=== PATIENT | female | born 1960 | race African-American/Black ===

== ENCOUNTER 2025-03-14 16:18 | Outpatient (CLI) | payer OTHER, SELFPAY ==
--- NOTE | ~2025-03-14 | CT_ITS ---
EXAMINATION: CT knee RT wo con DATE: 03/14/2025 17:25 INDICATION: Nondisplaced fracture lateral condyle of the right tibia TECHNIQUE: Computed tomography (CT) of the right knee was performed without intravenous contrast. The dose-length product was 468.38 mGy-cm. COMPARISON: None FINDINGS: There is severe tricompartment osteoarthritis of the right knee. There are osteochondral defects and small cystic changes in the medial aspect of the femoral condyle and tibial plateau, consistent with secondary degenerative change. No acute fracture, subluxation or dislocation is identified. No significant joint effusion. IMPRESSION: 1. No acute fracture. If there is continuing concern for subtle nondisplaced fracture or bone bruising, correlation with MRI recommended. 2: Severe tricompartment osteoarthritis of the right knee. Reviewed, dictated and finalized at location O. IMPRESSION: 1. No acute fracture. If there is continuing concern for subtle nondisplaced fr acture or bone bruising, correlation with MRI recommended. 2: Severe tricompartment osteoarthritis of the right knee.
--- OUTSIDE RECORDS SUMMARY | 2025-03-14 17:17 | XMS_ITS | Encounter Summary ---
Author Organization [facility] Facility Care Team Providers Care Tapper Supervisor Name Role Phone Delmer Farnsworth MD Primary Care Provider [phone] Abdoulaye Burns Primary Care Provider [phone] Encounter Details Date Type Department Care Team (Latest Contact Info) Description 02/15/2018 Orders Only [facility] CLINCON[facility] ProviderWinston MD [address] [place] [id number] Social History Tobacco Use Types Packs/Day Years Used Date Smoking Tobacco: Never Assessed Comments Unknown Sex and Gender Information Value Date Recorded Sex Assigned at Not on file 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 Historical Provider Final Res ult documented in this encounter Visit Diagnoses Not on filedocumented in this encounter Care Teams Tapper Supervisor Relationship Specialty Start Date End Date Delmer Farnsworth MD PCP - General Family Medicine 05/11/19 04/02/22 Abdoulaye Burns PA PCP - General Family Medicine 04/03/22 documented as of this encounter
--- OUTSIDE RECORDS SUMMARY | 2025-03-14 17:17 | XMS_ITS | Encounter Summary ---
Author Organization [facility] Healthcare Address [address] [place] [address] Care Team Providers Care Heater Operator Helper Name Role Phone Abdoulaye Burns Primary Care Provider [phone] Encounter Details Date Type Department Care Team ([facility] Contact Info) Description 01/31/2025 Results Follow-Up [facility] Medical Group Family Medicine at [address] [place] [address] Abdoulaye Burns PA [address] [place] [id number] Diagnostic Mammogram Left W [place] Social History Tobacco Use Types Packs/Day Years Used Date Smoking Tobacco: Former Cigarettes Q uit: 11/24/2002 Smokeless Tobacco: Never Comments:was a social smoker Alcohol Use Standard Drinks/Week Comments Yes 0 (1 standard drink = 0.6 oz pur e alcohol) occasionally AUDIT-C Answer Date Recorded Q1: How often do you have a drink containing alc ohol? 2-3 times a week 01/03/2025 Q2: How many drinks containi ng alcohol do you have on a typical day when you are drinking? 1 or 2 01/03/2025 Q3: How often do you have si x or more drinks on one occasion? Never 01/03/2025 PHQ-2 Answer Date Recorded PHQ-2 Total Score (If total score is 3 or more points, staff should administer the PHQ-9) 0 01/17/2025 Personal Safety Answer Date Recorded Have you ever been in or are you currently in a harmful physical or emotional relationship or is someone making you feel afraid or unsafe? 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
--- OUTSIDE RECORDS SUMMARY | 2025-03-14 17:17 | XMS_ITS | Encounter Summary ---
Author Organization [facility] Facility Care Team Providers Care Enterprise Resource Planning Consultant Name Role Phone Delmer Farnsworth MD Primary Care Provider [phone] Abdoulaye Burns Primary Care Provider [phone] Encounter Details Date Type Department Care Team (Latest Contact Info) Description 08/05/2018 Orders Only [facility] CLINCONV ProviderWinston MD [address] [place] [address] Social History Tobacco Use Types Packs/Day Years Used Date Smoking Tobacco: Never Assessed Comments Unknown Sex and Gender Information Value Date Recorded Sex Assigned at Not on file 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 Historical Provider Final Res ult documented in this encounter Visit Diagnoses Not on filedocumented in this encounter Care Teams Enterprise Resource Planning Consultant Relationship Specialty Start Date End Date Delmer Farnsworth MD PCP - General Family Medicine 05/11/19 04/02/22 Abdoulaye Burns PA PCP - General Family Medicine 04/03/22 documented as of this encounter
--- OUTSIDE RECORDS SUMMARY | 2025-03-14 17:18 | XMS_ITS | Clinical Summary ---
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 Gender Identity Not on file Sexual Orientation Not on file Plan of Treatment Health Maintenance Due Date Last Done Comments Hepatitis C Virus (HCV) Screening 1961 Pap Smear 1982 Cervical Cancer Screening (CCS) 12/08/1991 HPV/Cotest 12/08/1991 Cologuard 2006 Colonoscopy 2006 Colorectal Cancer Screening 2006 Immunochemical Fecal Occult Blood 2006 Zoster Immunization (1 of 2) 12/08/2011 Pneumococcal Immunization (50+ years) (2 of 2 - PCV) 04/18/2014 04/18/2013 SARS-COV-2 Immunization ( season) 2024 07/14/2021, 09/13/2020 Influenza Immunization (#1) 03/06/202504/05, 04/14/2017, 03/18/2016, Additional history exists Respiratory Syncytial Virus (RSV) Immunization (Adult) (1 - 1-dose 75+ series) 2036 DTaP/Tdap/Td Immunization Discontinued 04/18/2013 Pneumococcal Immunization Combined Discontinued 04/18/2013 TdaP Immunization Completed 04/18/2013 Hepatitis B Immunization Aged Out No longer eligible based on patient's age to complete this topic Human Papillomavirus (HPV) Immunization Aged Out No longer eligible based on patient's age to complete this topic Meningococcal Immunization (ACWY) Aged Out No longer eligible based on patient's age to complete this topic Rotavirus Immunization Aged Out No lo nger eligible based on patient's age to complete this topic
--- OUTSIDE RECORDS SUMMARY | 2025-03-14 17:18 | XMS_ITS | Encounter Summary ---
Author Organization [facility] Health Address [address] [place] [address] Care Team Providers Care Press Puller Name Role Phone Stanislav Andino DO Primary Care Provider [phone] Hillary Grant RN Unavailable Segundo Lombardi MD Unavailable Encounter Details Date Type Department Care Team (Late st Contact Info) Description 09/07/2015 [facility] Outpatient Visit [facility] [address] [place] [address] Abdifatah Fishman MD [address] [facility] [address] [place] [address] Social History Tobacco Use Types Packs/Day Years Used Date Smoking Tobacco: Former Smokeless Tobacco: Never Comments:quit 10 years ago Alcohol Use Standard Drinks/Week Comments Yes 0 (1 standard drink = 0.6 oz pur e alcohol) occ Comments No Sex and Gender Information Value Date Recorded Sex Assigned at Not on file Legal Sex Female 5:59 AM TROUBLE DISPATCHER Gender Identity Not on file Sexual Orientation Not on file documented as of this encounter Plan of Treatment Not on file documented as of this encounter Visit Diagnoses Not on filedocumented in this encounter Care Teams Press Puller Relationship Specialty Start Date End Date Stanislav Andino DO PCP - General Internal Medicine 09/07/15 Hillary Grant, MARCELINA Import Coordinator 12/07/15 Segundo Lombardi MD [address] [place] [address] Gastroenterology 12/19/15 documented as of this encounter
--- OUTSIDE RECORDS SUMMARY | 2025-03-14 17:18 | XMS_ITS | Clinical Summary ---
Author Organization [facility] Address [address] [place] [id number] Care Team Providers Care Rn Baby Name Role Phone Marely Samayoa Primary Care Provider Allergies No known active allergies Medications folic acid/multivit-m in/lutein (CENTRUM SILVER ORAL) Take 1 tablet by mouth 2 (two) times a day Active UNABLE TO FIND Take 1 each by mouth daily Med Name: Biotin 2500 mcg Active celecoxib (CeleBREX) 200 mg capsuleIndicati ons:Chronic pain of right knee Take 1 capsule (200 mg total) by mouth daily 90 capsule [address] (ACIPHEX) 20 mg EC tabletIndicatio ns:Acute gastric ulcer with bleeding Take 1 tablet (20 mg total) by mouth daily 90 tablet 3 4 Active losartan (COZAAR) 50 mg tabletIndicatio ns:Benign essential HTN Take 1 tablet (50 mg total) by mouth daily 90 tablet 3 4 Active furosemide (LASIX) 40 mg tabletIndicatio ns:Bilateral lower extremity edema Take 1 tablet (40 mg total) by mouth daily 90 tablet 3 5 Active acetaminophen (TYLENOL) 325 mg tabletIndicatio ns:Left foot pain Take 2 tablets (650 mg total) by mouth every 6 (six) hours as needed for pain 30 tablet 2 5 Active potassium chloride ER (KLOR-CON) 10 mEq CR tablet Take 1 tablet/capsule (10 mEq total) by mouth daily 90 tablet 3 5 11/03/19 26 Active diclofenac sodium (VOLTAREN) 1 % gelIndications: Achilles tendinitis of right lower extremity Apply 2 g topically 4 (four) times a day 100 g 1 5 Active ferrous sulfate (FeroSuL) 325 mg (65 mg of elemental iron) tabletIndicatio ns:Iron deficiency anemia due to chronic blood loss Take 1 tablet (325 mg total) by mouth daily with breakfast 90 tablet 3 5 Active nebivoloL (BYSTOLIC) 10 mg tabletIndicatio ns:Benign essential HTN,Bilateral lower extremity edema Take 1 tablet (10 mg total) by mouth daily 90 tablet 3 5 01/18/20 26 Active cholecalciferol (VITAMIN D-3) 5,000 unit capsuleIndicati ons:Vitamin D deficiency TAKE 1 TABLET BY MOUTH DAILY 90 capsule 1 5 Active Active Problems Problem Noted Date Diagnosed Date Pulmonary HTN 01/17/2025 Benign essential HTN 01/14/2024 Assessment & Plan (04/13/2024 4:49 PM CDT): Chronic uncontrolled Continue bystolic Start losartan 50mg Assessment & Plan (01/14/2024 11:31 AM CDT): Chronic and not well controlled with edema likely secondary to norvasc D/c norvasc Start bystolic 10mg Abnormal EKG 12/14/2023 Assessment & Plan (02/08/2025 3:27 PM CDT): -Preoperative risk assessment completed during last visit last year showing T- wave abnormality which is unchanged today Preoperative cardiovascular examination 12/14/19 24 Exertional dyspnea 12/14/2023 Pre-op evaluation 12/14/2023 Mixed hyperlipidemia 12/14/2023 Assessment & Plan (02/08/2025 3:13 PM CDT): -LDL 120 last month with goal < 100 -advised on low-fat, low-cholesterol diet -ASCVD risk 7%-discussed risk reduction Primary osteoarthritis of right knee 12/09/2023 Assessment & Plan (04/13/2024 4:51 PM CDT): Chronic severe degeneration Continue celebrex Give initial injection today RISKS AND BENEFITS OF PROCEDURE WERE EXPLAINED TO PATIENT AND CONSENT FORM WAS SIGNED. AREA WAS PREPPED WITH BETADINE TO SKIN AND DRAPED IN A STERILE MANOR. 1 1/2CC kenolog AND 1 1/2 CC LIDOCAINE WAS INJECTED INTO right knee JOINT WITH LATERAL APPROACH. PATIENT TOLERATED PROCEDURE WELL WITHOUT COMPLICATION. APPROPRIATE BANDAGE APPLIED. PATIENT ADVISED TO CALL WITH ANY CONCERNS/COMPLICATIONS. Assessment & Plan (12/09/2023 2:15 PM CDT): Chronic severe degeneration Continue celebrex Give initial injection today RISKS AND BENEFITS OF PROCEDURE WERE EXPLAINED TO PATIENT AND CONSENT FORM WAS SIGNED. AREA WAS PREPPED WITH BETADINE TO SKIN AND DRAPED IN A STERILE MANOR. 1 1/2CC kenolog AND 1 1/2 CC LIDOCAINE WAS INJECTED INTO right knee JOINT WITH LATERAL APPROACH. PATIENT TOLERATED PROCEDURE WELL WITHOUT COMPLICATION. APPROPRIATE BANDAGE APPLIED. PATIENT ADVISED TO CALL WITH ANY CONCERNS/COMPLICATIONS. Bilateral lower extremity edema 12/09/2023 Assessment & Plan (02/14/2025 10:07 PM CDT): -Patient continues on furosemide 40 mg daily - currently having tendenitis with bone spur in right foot and currently in a boot followed by Ortho -TTE 01/25/2025 showing EF 57%, grade 1 DD, mild MR, mild TR with PASP 35-45 mmHg consistent with mild pulmonary hypertension - euvolemic on exam Assessment & Plan (04/13/2024 4:47 PM CDT): Chronic uncontrolled Start lasix 40mg every day Start kcl 10meq every day Assessment & Plan (01/14/2024 11:33 AM CDT): Chronic and currently not well controlled Double lasix for 4 days Start kcl 10meq qd#90 Order chem 7 cbc in 2 weeks Assessment & Plan (12/09/2023 2:17 PM CDT): Chronic Reduce processed and na foods Complression socks Restart lasix Class 3 severe obesity due t o excess calories without serious comorbidity with body mass index (BMI) of 45.0 to 49.9 in adult 10/13/2023 Assessment & Plan (02/08/2025 3:27 PM CDT): -BMI 48 -Advised on diet lifestyle modifications to promote weight loss -would consider GLP 1 options with PCP Assessment & Plan (10/13/2023 3:06 PM CDT): Chronic uncontrolled, reduce processed carb/starch, exercise as max, whole foods Abnormal finding on GI tract imaging 01/19/2023 Assessment & Plan (01/19/2023 2:04 PM CDT): CT scan 06/2022 showed gallstone in the gallbladder neck, mild biliary fullness. -we will order MRI/MRCP for further evaluation Acute gastric ulcer with bleeding 06/17/2022 Assessment & Plan (01/19/2023 2:04 PM CDT): Patient has a history of diverticulitis status post resection and was admitted to the hospital June 2022 for GI bleeding. Patient underwent EGD and colonoscopy by Dr. Darby June 2022. EGD notable for a large hiatal hernia, 8 mm ulcer with a clean base in the gastric antrum, gastritis. Colonoscopy with inadequate prep, evidence of prior surgery in the sigmoid colon, diverticulosis in the descending colon, otherwise unremarkable colonoscopy. Stopped NSAIDs after EGD. Denies melena or rectal bleeding since hospitalization. -avoid NSAIDs -continue PPI b.i.d. -schedule EGD to assess for ulcer healing -RECOMMENDATIONS given include: anti-reflux maneuvers, Avoid acidic foods like oranges and tomatoes., avoidance of spicy foods, avoid eating 3-4 hours before bed, elevation of the head of the bed, and weight loss Assessment & Plan (06/17/2022 10:02 AM PROVIDER SCRIBE): Increase Protonix to 40 mg b.i.d. as indicated by discharge from hospitalization. Will complete this for 90 days and reduced to once a day. Gastroesophageal reflux disease without esophagi tis 06/17/2022 Assessment & Plan (11/27/2023 8:51 AM CDT): Chronic stable improved Continue pantoprazole Assessment & Plan (06/17/2022 10:01 AM PROVIDER SCRIBE): Chronic condition refer to GI for follow-up management of recently developed bleeding ulcer. This was verified by EGD. Continue with Protonix 40 mg b.i.d. for 90 days. GI bleed 06/06/2022 Vitamin D deficiency 12/03/2021 Assessment & Plan (12/03/2021 12:45 PM CDT): Chronic Order vit d level Venous insufficiency of both lower extremities 1 07/17/2018 Assessment & Plan (11/27/2023 8:51 AM CDT): Chronic stable Continue furosemide for edema continue compression stocking. Non-seasonal allergic rhinitis 05/17/2019 Iron deficiency anemia 05/17/2019 Assessment & Plan (01/19/2023 2:04 PM CDT): See above. -if patient remains anemic despite ulcer healing, we will consider capsule endoscopy for further evaluation Assessment & Plan (06/17/2022 10:01 AM PROVIDER SCRIBE): Chronic condition currently taking iron supplement. Order CBC Assessment & Plan (12/03/2021 12:44 PM CDT): Chronic Order iron panel and cbc Rectal bleeding Encounters Date Type Department Care Team Description 02/08/2025 2:30 PM CDT Office Visit [facility] Cardiology [address] [place] [address] [place] [phone] Suyapa Monterroso NP Exertional dyspnea (Primary Dx); Primary hypertension; Abnormal EKG; Bilateral lower extremity edema; Mild pulmonary hypertension (HCC); Mixed hyperlipidemia; Class 3 severe obesity due to excess calories without serious comorbidity with body mass index (BMI) of 45.0 to 49.9 in adult 02/02/2025 9:53 AM CDT - 02/02/2025 11:59 PM CDT Hospital Encounter [facility] Di[facility] Imaging [address] [place] [phone] Right foot pain; Left foot pain; Pulmonary HTN (HCC); Bilateral leg edema Discharge Disposition: Discharge to home or self care 02/02/2025 9:30 AM CDT Office Visit [facility] Orthopedics and Sports Medicine [address] [place] [address] [address] [place] [address] Saji Abraham DO Right foot pain (Primary Dx); Left foot pain; Tendinopathy; Abnormal x-ray 01/31/2025 8:30 AM CDT - 01/31/2025 11:59 PM CDT Hospital Encounter [facility] Bl [address] [place] [address] Abnormal mammogram Discharge Disposition: Discharge to home or self care 01/31/2025 Results Follow-Up [facility] at [address] [place] [address] Marely Samayoa PA Diagnostic Mammogram Left W [place]onzo 01/31/2025 Telephone [facility] at [address] [place] [address] Marely Samayoa PA Test Results 01/25/2025 10:18 AM CDT - 01/25/2025 11:59 PM CDT Hospital Encounter [facility] Breast Imaging [address] [place] [phone] Screening mammogram, encounter for Discharge Disposition: Discharge to home or self care 01/25/2025 9:00 AM CDT - 01/25/2025 11:59 PM CDT Hospital Encounter [facility] Cardiac Testing [address] [place] [address] Bilateral leg edema Discharge Disposition: Discharge to home or self care 01/17/2025 11:00 AM CDT Office Visit [facility] at [address] [phone] Marely Samayoa PA Pulmonary HTN (HCC) (Primary Dx); Benign essential HTN; Bilateral lower extremity edema; Daytime somnolence; Iron deficiency anemia due to chronic blood loss; Primary osteoarthritis of right knee 01/03/2025 9:20 AM CDT - 01/03/2025 11:59 PM CDT Hospital Encounter [facility] Diag Imaging [address] [place] [address] Achilles tendinitis of right lower extremity; Pain of left heel Discharge Disposition: Discharge to home or self care 01/03/2025 9:05 AM CDT Lab [facility] Medical Office Bldg [address] [place] [id number] Benign essential HTN; Bilateral leg edema; Iron deficiency anemia due to chronic blood loss; Annual physical exam 01/03/2025 8:00 AM CDT Office Visit [facility] at [address] [address] Marely Samayoa PA Bilateral leg edema (Primary Dx); Morbid obesity with BMI of 45.0-49.9, adult (HCC); Benign essential HTN; Achilles tendinitis of right lower extremity 01/03/2025 Results Follow-Up [facility] at [address] [phone] Marely Samayoa PA T3, free, Pro B-type natriuretic peptide, TSH, Additional followed-up results: 11 01/03/2025 Orders Only [facility] at [address] [phone] Marely Samayoa PA Pain of left heel (Primary Dx) 01/02/2025 Nurse Triage [facility] at [address] [address] Marely Samayoa PA 12/12/2024 Telephone [facility] at [address] [address] Marely Samayoa PA Symptom Based Call from Last 3 Months Immunizations Immunization Administration Dates Next Due Influenza, Quadrivalent, Spl it, Intramuscular 04/15/2018 Influenza, Quadrivalent, Spl it, Preservative Free, Intramuscular 06/07/2022,04/15/2018,04/14/2018 Influenza, Trivalent, IM (MDV) 05/10/2021 Influenza, Trivalent, Preser vative Free, Intramuscular 04/13/2024,04/14/2017,03/18/2016,04/11 Influenza, Unspecified 03/06/2023(Deferr ed: Patient Refused),05/03/2021,03/06/2020(Deferre d: Patient Refused) Pneumococcal Polysaccharide PPV23 04/18/2013 Tdap 04/18/2013 Surgical History Surgery Date Site/Laterality Comments HERNIA REPAIR NASAL SINUS SURGERY HYSTERECTOMY CARPAL TUNNEL RELEASE COLON SURGERY BREAST EXCISIONAL BIOPSY 07/06/1978 - 07/05/1979 Bilateral Bilateral benign excisional biopsies age 18 Medical History Medical History Date Comments GERD (gastroesophageal reflux disease) Diverticulosis Colon polyp Family History Medical History Relation Name Comments Diabetes Brother 1 No Known Problems Brother 2 Deep vein thrombosis Daughter No Known Problems Father Hypertension Mother Cancer Sister 1 Colon cancer Sister 1 No Known Problems Sister 2 No Known Problems Sister 3 Breast cancer Neg Hx Relation Name Status Comments Brother 1 Alive Brother 2 Alive Daughter Alive Father Mother Sister 1 Alive Sister 2 Alive Sister 3 Alive Social History Tobacco Use Types Packs/Day Years Used Date Smoking Tobacco: Former Cigarettes Q uit: 11/24/2002 Smokeless Tobacco: Never Tobacco Cessation:Counseling Given: Not Answered Comments:was a social smoker Alcohol Use Standard [...] on file Legal Sex Female 12:13 PM PROVIDER SCRIBE Gender Identity Not on file Sexual Orientation Not on file Obstetrics History Para Term AB IAB SAB Ectopic Multiple Livin g Live Births 1 1 Date Outcome GA Total Labor Labor/2nd/3rd Weight Sex Type Anes PTL Juliet A1 A5 Name Clin Last Filed Vital Signs Vital Sign Reading Time Taken Comments Blood Pressure 130/70 02/08/2025 2:43 PM CDT Pulse 87 02/08/2025 2:43 PM CDT Temperature 37.2 C (99 F) 01/17/2025 11:39 AM CDT Respiratory Rate 16 01/17/2025 11:3 9 AM CDT Oxygen Saturation 96% 02/08/2025 2:43 PM CDT Inhaled Oxygen Concentration - - Weight 131.8 kg (290 lb 9.6 oz) 02/08/2025 2:43 PM CDT Height 165.1 cm (5' 5) 02/08/2025 2:43 PM CDT Body Mass Index 48.36 02/08/2025 2:43 PM CDT Plan of Treatment Health Maintenance Due Date Last Done Comments Hepatitis C Screening 1960 Hepatitis B Screening 12/08/1979 Zoster Vaccine (1 of 2) 12/08/2011 DTaP/Tdap/Td Vaccine (2 - Td or Tdap) 04/18/2023 04/18/2013 Influenza Vaccine (#1) 2025 , 06/07/2022, 05/10/2021, Additional history exists Regular Well Visit/Exam 18-64 11/02/2025 11/02/2024, 10/13/2023, 09/03/2020 Depression Screening 01/17/2026 01/17/2025, 11/02/2024, 12/16/2022, Additional history exists Breast Cancer Screening-Mammogram 01/25/2026 01/25/2025 Colon Cancer Screening-Colonoscopy 06/03/2027 06/03/2022 Pneumococcal vaccine <65 Aged Out 04/18/2013 No longer eligible based on patient's age to complete this topic Cervical Cancer Screening Discontinued 11/19/2015 Colon Cancer Screening-CT Colonography Discontinued 06/03/2022 Colon Cancer Screening-DNA Stool Discontinued 06/03/2022 Colon Cancer Screening-FIT Discontinued 06/03/2022 Colon Cancer Screening-Sigmoidoscopy Discontinued 06/03/2022 Covid-19 Vaccine Completed 03/29/2024, , 10/28/2022, Additional history exists Procedures Procedure Name Priority Date/Time Associated Diagnosis Comments HI ECG ROUTINE ECG W/LEAST 12 LDS W/I&R Routine 02/14/2025 10:04 PM CDT Abnormal EKG ECG 12-LEAD Routine 02/08/2025 2:52 PM CDT Abnormal EKG XR ANKLE LEFT 3 OR MORE VIEWS Schedule Routine, Read Routine (OP Routine) 02/02/2025 10:23 AM CDT Left foot pain XR FOOT LEFT 3 OR MORE VIEWS Schedule Routine, Read Routine (OP Routine) 02/02/2025 10:23 AM CDT Left foot pain XR FOOT RIGHT 3 OR MORE VIEWS Schedule Routine, Read Routine (OP Routine) 02/02/2025 10:23 AM CDT Right foot pain XR ANKLE RIGHT 3 OR MORE VIEWS Schedule Routine, Read Routine (OP Routine) 02/02/2025 10:23 AM CDT Right foot pain DIAGNOSTIC MAMMOGRAM LEFT W ALONZO Schedule Routine, Read Routine (OP Routine) 01/31/2025 9:22 AM CDT Abnormal mammogram SCREENING MAMMOGRAM BILATERAL W ALONZO Schedule Routine, Read Routine (OP Routine) 01/25/2025 10:32 AM CDT Screening mammogram, encounter for TRANSTHORACIC ECHO (TTE) COMPLETE W DOPPLER/CF WO CONTRAST Routine 01/25/2025 10:07 AM CDT Bilateral leg edema XR CALCANEUS LEFT 2 OR MORE VIEWS Schedule Routine, Read Routine (OP Routine) 01/03/2025 9:29 AM CDT Pain of left heel XR CALCANEUS RIGHT 2 OR MORE VIEWS Schedule Routine, Read Routine (OP Routine) 01/03/2025 9:29 AM CDT Achilles tendinitis of right lower extremity EGFR Routine 01/03/2025 9:15 AM CDT Bilateral leg edema DIFFERENTIAL AUTO Routine 01/03/2025 9:1 5 AM CDT Bilateral leg edema LIPID PANEL Routine 01/03/2025 9:15 AM CDT Benign essential HTN Annual physical exam FERRITIN Routine 01/03/2025 9:15 AM CDT Iron deficiency anemia due to chronic blood loss IRON PROFILE W/ IBC Routine 01/03/2025 9 :15 AM CDT Iron deficiency anemia due to chronic blood loss T4, FREE Routine 01/03/2025 9:15 AM CDT Benign essential HTN CBC WITH AUTO DIFFERENTIAL Routine 01/03/2025 9:15 AM CDT Bilateral leg edema COMPREHENSIVE METABOLIC PANEL Routine 01/03/2025 9:15 AM CDT Bilateral leg edema TSH Routine 01/03/2025 9:15 AM CDT Bilateral leg edema PRO B-TYPE NATRIURETIC PEPTIDE Routine 01/03/2025 9:15 AM CDT Bilateral leg edema T3, FREE Routine 01/03/2025 9:15 AM CDT Benign essential HTN COLONOSCOPY Routine 06/03/2022 HM PAP SMEAR WITH HPV Routine 11/19/2015 from Last 3 Months or Most Recently Relevant to Health Maintenance Results * HI ECG ROUTINE ECG W/LEAST 12 LDS W/I&R (02/14/2025 10:04 PM CDT) Narrative Suyapa Monterroso NP - 02/14/2025 10:04 PM CDT Suyapa Monterroso NP 02/14/2025 10:07 PM EKG 12 lead office performed Date/Time: 02/14/2025 10:04 PM Performed by: Suyapa Monterroso NP Authorized by: Suyapa Monterroso NP Procedure Type: Global Compared with previous ECG: Yes Similar to previous ECG Rhythm: sinus rhythm Rate: normal BPM: 83 QRS axis: Normal Conduction: Normal ST Segment: Normal T Wave: Normal Clinical impression: normal ECG Suyapa Monterroso NP ECG ORDERABLES Final Result * ECG 12 lead (02/08/2025 2:52 PM CDT) Suyapa Monterroso NP ECG ORDERABLES Final Result * XR Foot Right 3 or More Views (02/02/2025 10:23 AM CDT) Anatomical Region Laterality Modality Lower Extremities, Foot Right Computed Radiography 02/04/2025 1:52 PM CDT Narrative 02/04/2025 2:03 PM CDT SERVICE TYPE: : PatientClass ORD #: : AccessionNumber EXAM DESCRIPTION: 1. XR ANKLE RIGHT 3 OR MORE VIEWS; 2. XR ANKLE LEFT 3 OR MORE VIEWS; 3. XR FOOT LEFT 3 OR MORE VIEWS; 4. XR FOOT RIGHT 3 OR MORE VIEWS REASON FOR STUDY: pain Bilateral foot and ankle swelling x 1 MTH, NKI FINDINGS: Three views each ankle and three views each foot submitted with comparison 01/03/2025. Right ankle/foot: No acute fracture. Mild anterior ankle osteoarthritis. Insertional Achilles tendinosis is present. Large heel spur. Moderate pes planovalgus with polyarticular midfoot osteoarthritis. Moderate forefoot soft tissue swelling. Lesser hammertoe deformities are present. Left ankle: No acute fracture. Old deltoid ligament sprain noted. Mild anterior left ankle osteoarthritis. Achilles tendinosis is present. Large heel spur. Moderate pes planovalgus with polyarticular midfoot osteoarthritis. Lesser hammertoe deformities. Forefoot soft tissue swelling. IMPRESSION: 1. Moderate bilateral pes planovalgus with polyarticular midfoot osteoarthritis. 2. Mild bilateral anterior ankle osteoarthritis. 3. Bilateral insertional Achilles tendinosis with large heel spurs. 4. Bilateral forefoot soft tissue swelling. THIS IS AN ELECTRONICALLY VERIFIED FINAL REPORT 02/04/2025 2:03 PM - Electronically signed by Chetan Brandon M.D. T: Report ID: [id number] Reading Location: [place] [address] Procedure Note Chetan Brandon MD - 02/04/2025 SERVICE TYPE: : PatientClass ORD #: : AccessionNumber EXAM DESCRIPTION: 1. XR ANKLE RIGHT 3 OR MORE VIEWS; 2. XR ANKLE LEFT 3 OR MORE VIEWS; 3. XR FOOT LEFT 3 OR MORE VIEWS; 4. XR FOOT RIGHT 3 OR MORE VIEWS REASON FOR STUDY: pain Bilateral foot and ankle swelling x 1 MTH, NKI FINDINGS: Three views each ankle and three views each foot submitted with comparison 01/03/2025. Right ankle/foot: No acute fracture. Mild anterior ankle osteoarthritis. InsertionalAchilles tendinosis is present. Large heel spur. Moderate pes planovalgus with polyarticular midfoot osteoarthritis. Moderate forefoot soft tissueswelling. Lesser hammertoe deformities are present. Left ankle: No acute fracture. Old deltoid ligament sprain noted. Mild anterior left ankle osteoarthritis. Achilles tendinosis is present. Large heel spur. Moderate pes planovalgus with polyarticular midfoot osteoarthritis.Lesser hammertoe deformities. Forefoot soft tissue swelling. IMPRESSION: 1. Moderate bilateral pes planovalgus with polyarticular midfoot osteoarthritis. 2. Mild bilateral anterior ankle osteoarthritis. 3. Bilateral insertional Achilles tendinosis with large heel spurs. 4. Bilateral forefoot soft tissue swelling. THIS IS AN ELECTRONICALLY VERIFIED FINAL REPORT 02/04/2025 2:03 PM - Electronically signed by Chetan Brandon M.D. T: Report ID: [id number] Reading Location: [place] [address] Saji Abraham DO IMG XR PROCEDURES Final Result * XR Foot Left 3 or More Views (02/02/2025 10:23 AM CDT) Anatomical Region Laterality Modality Lower Extremities, Foot Left Computed Radiography 02/04/2025 1:5 2 PM CDT Narrative 02/04/2025 2:03 PM CDT SERVICE TYPE: : PatientClass ORD #: : AccessionNumber EXAM DESCRIPTION: 1. XR ANKLE RIGHT 3 OR MORE VIEWS; 2. XR ANKLE LEFT 3 OR MORE VIEWS; 3. XR FOOT LEFT 3 OR MORE VIEWS; 4. XR FOOT RIGHT 3 OR MORE VIEWS REASON FOR STUDY: pain Bilateral foot and ankle swelling x 1 MTH, NKI FINDINGS: Three views each ankle and three views each foot submitted with comparison 01/03/2025. Right ankle/foot: No acute fracture. Mild anterior ankle osteoarthritis. Insertional Achilles tendinosis is present. Large heel spur. Moderate pes planovalgus with polyarticular midfoot osteoarthritis. Moderate forefoot soft tissue swelling. Lesser hammertoe deformities are present. Left ankle: No acute fracture. Old deltoid ligament sprain noted. Mild anterior left ankle osteoarthritis. Achilles tendinosis is present. Large heel spur. Moderate pes planovalgus with polyarticular midfoot osteoarthritis. Lesser hammertoe deformities. Forefoot soft tissue swelling. IMPRESSION: 1. Moderate bilateral pes planovalgus with polyarticular midfoot osteoarthritis. 2. Mild bilateral anterior ankle osteoarthritis. 3. Bilateral insertional Achilles tendinosis with large heel spurs. 4. Bilateral forefoot soft tissue swelling. THIS IS AN ELECTRONICALLY VERIFIED FINAL REPORT 02/04/2025 2:03 PM - Electronically signed by Chetan Brandon M.D. T: Report ID: [id number] Reading Location: [place] [address] Procedure Note Chetan Brandon MD - 02/04/2025 SERVICE TYPE: : PatientClass ORD #: : AccessionNumber EXAM DESCRIPTION: 1. XR ANKLE RIGHT 3 OR MORE VIEWS; 2. XR ANKLE LEFT 3 OR MORE VIEWS; 3. XR FOOT LEFT 3 OR MORE VIEWS; 4. XR FOOT RIGHT 3 OR MORE VIEWS REASON FOR STUDY: pain Bilateral foot and ankle swelling x 1 MTH, NKI FINDINGS: Three views each ankle and three views each foot submitted with comparison 01/03/2025. Right ankle/foot: No acute fracture. Mild anterior ankle osteoarthritis. InsertionalAchilles tendinosis is present. Large heel spur. Moderate pes planovalgus with polyarticular midfoot osteoarthritis. Moderate forefoot soft tissueswelling. Lesser hammertoe deformities are present. Left ankle: No acute fracture. Old deltoid ligament sprain noted. Mild anterior left ankle osteoarthritis. Achilles tendinosis is present. Large heel spur. Moderate pes planovalgus with polyarticular midfoot osteoarthritis.Lesser hammertoe deformities. Forefoot soft tissue swelling. IMPRESSION: 1. Moderate bilateral pes planovalgus with polyarticular midfoot osteoarthritis. 2. Mild bilateral anterior ankle osteoarthritis. 3. Bilateral insertional Achilles tendinosis with large heel spurs. 4. Bilateral forefoot soft tissue swelling. THIS IS AN ELECTRONICALLY VERIFIED FINAL REPORT 02/04/2025 2:03 PM - Electronically signed by Chetan Brandon M.D. T: Report ID: [id number] Reading Location: [place] [address] Saji Abraham DO IMG XR PROCEDURES Final Result * XR Ankle Right 3 or More Views (02/02/2025 10:23 AM CDT) Anatomical Region Laterality Modality Lower Extremities, Ankle Right Compute d Radiography 02/04/2025 1:52 PM CDT Narrative 02/04/2025 2:03 PM CDT SERVICE TYPE: : PatientClass ORD #: : AccessionNumber EXAM DESCRIPTION: 1. XR ANKLE RIGHT 3 OR MORE VIEWS; 2. XR ANKLE LEFT 3 OR MORE VIEWS; 3. XR FOOT LEFT 3 OR MORE VIEWS; 4. XR FOOT RIGHT 3 OR MORE VIEWS REASON FOR STUDY: pain Bilateral foot and ankle swelling x 1 MTH, NKI FINDINGS: Three views each ankle and three views each foot submitted with comparison 01/03/2025. Right ankle/foot: No acute fracture. Mild anterior ankle osteoarthritis. Insertional Achilles tendinosis is present. Large heel spur. Moderate pes planovalgus with polyarticular midfoot osteoarthritis. Moderate forefoot soft tissue swelling. Lesser hammertoe deformities are present. Left ankle: No acute fracture. Old deltoid ligament sprain noted. Mild anterior left ankle osteoarthritis. Achilles tendinosis is present. Large heel spur. Moderate pes planovalgus with polyarticular midfoot osteoarthritis. Lesser hammertoe deformities. Forefoot soft tissue swelling. IMPRESSION: 1. Moderate bilateral pes planovalgus with polyarticular midfoot osteoarthritis. 2. Mild bilateral anterior ankle osteoarthritis. 3. Bilateral insertional Achilles tendinosis with large heel spurs. 4. Bilateral forefoot soft tissue swelling. THIS IS AN ELECTRONICALLY VERIFIED FINAL REPORT 02/04/2025 2:03 PM - Electronically signed by Chetan Brandon M.D. T: Report ID: [id number] Reading Location: [place] [address] Procedure Note Chetan Brandon MD - 02/04/2025 SERVICE TYPE: : PatientClass ORD #: : AccessionNumber EXAM DESCRIPTION: 1. XR ANKLE RIGHT 3 OR MORE VIEWS; 2. XR ANKLE LEFT 3 OR MORE VIEWS; 3. XR FOOT LEFT 3 OR MORE VIEWS; 4. XR FOOT RIGHT 3 OR MORE VIEWS REASON FOR STUDY: pain Bilateral foot and ankle swelling x 1 MTH, NKI FINDINGS: Three views each ankle and three views each foot submitted with comparison 01/03/2025. Right ankle/foot: No acute fracture. Mild anterior ankle osteoarthritis. InsertionalAchilles tendinosis is present. Large heel spur. Moderate pes planovalgus with polyarticular midfoot osteoarthritis. Moderate forefoot soft tissueswelling. Lesser hammertoe deformities are present. Left ankle: No acute fracture. Old deltoid ligament sprain noted. Mild anterior left ankle osteoarthritis. Achilles tendinosis is present. Large heel spur. Moderate pes planovalgus with polyarticular midfoot osteoarthritis.Lesser hammertoe deformities. Forefoot soft tissue swelling. IMPRESSION: 1. Moderate bilateral pes planovalgus with polyarticular midfoot osteoarthritis. 2. Mild bilateral anterior ankle osteoarthritis. 3. Bilateral insertional Achilles tendinosis with large heel spurs. 4. Bilateral forefoot soft tissue swelling. THIS IS AN ELECTRONICALLY VERIFIED FINAL REPORT 02/04/2025 2:03 PM - Electronically signed by Chetan Brandon M.D. T: Report ID: [id number] Reading Location: [place] [address] Saji Abraham DO IMG XR PROCEDURES Final Result * XR Ankle Left 3 or More Views (02/02/2025 10:23 AM CDT) Anatomical Region Laterality Modality Lower Extremities, Ankle Left Compute d Radiography 02/04/2025 1:52 PM CDT Narrative 02/04/2025 2:03 PM CDT SERVICE TYPE: : PatientClass ORD #: : AccessionNumber EXAM DESCRIPTION: 1. XR ANKLE RIGHT 3 OR MORE VIEWS; 2. XR ANKLE LEFT 3 OR MORE VIEWS; 3. XR FOOT LEFT 3 OR MORE VIEWS; 4. XR FOOT RIGHT 3 OR MORE VIEWS REASON FOR STUDY: pain Bilateral foot and ankle swelling x 1 MTH, NKI FINDINGS: Three views each ankle and three views each foot submitted with comparison 01/03/2025. Right ankle/foot: No acute fracture. Mild anterior ankle osteoarthritis. Insertional Achilles tendinosis is present. Large heel spur. Moderate pes planovalgus with polyarticular midfoot osteoarthritis. Moderate forefoot soft tissue swelling. Lesser hammertoe deformities are present. Left ankle: No acute fracture. Old deltoid ligament sprain noted. Mild anterior left ankle osteoarthritis. Achilles tendinosis is present. Large heel spur. Moderate pes planovalgus with polyarticular midfoot osteoarthritis. Lesser hammertoe deformities. Forefoot soft tissue swelling. IMPRESSION: 1. Moderate bilateral pes planovalgus with polyarticular midfoot osteoarthritis. 2. Mild bilateral anterior ankle osteoarthritis. 3. Bilateral insertional Achilles tendinosis with large heel spurs. 4. Bilateral forefoot soft tissue swelling. THIS IS AN ELECTRONICALLY VERIFIED FINAL REPORT 02/04/2025 2:03 PM - Electronically signed by Chetan Brandon M.D. T: Report ID: [id number] Reading Location: [place] [address] Procedure Note Chetan Brandon MD - 02/04/2025 SERVICE TYPE: : PatientClass ORD #: : AccessionNumber EXAM DESCRIPTION: 1. XR ANKLE RIGHT 3 OR MORE VIEWS; 2. XR ANKLE LEFT 3 OR MORE VIEWS; 3. XR FOOT LEFT 3 OR MORE VIEWS; 4. XR FOOT RIGHT 3 OR MORE VIEWS REASON FOR STUDY: pain Bilateral foot and ankle swelling x 1 MTH, NKI FINDINGS: Three views each ankle and three views each foot submitted with comparison 01/03/2025. Right ankle/foot: No acute fracture. Mild anterior ankle osteoarthritis. InsertionalAchilles tendinosis is present. Large heel spur. Moderate pes planovalgus with polyarticular midfoot osteoarthritis. Moderate forefoot soft tissueswelling. Lesser hammertoe deformities are present. Left ankle: No acute fracture. Old deltoid ligament sprain noted. Mild anterior left ankle osteoarthritis. Achilles tendinosis is present. Large heel spur. Moderate pes planovalgus with polyarticular midfoot osteoarthritis.Lesser hammertoe deformities. Forefoot soft tissue swelling. IMPRESSION: 1. Moderate bilateral pes planovalgus with polyarticular midfoot osteoarthritis. 2. Mild bilateral anterior ankle osteoarthritis. 3. Bilateral insertional Achilles tendinosis with large heel spurs. 4. Bilateral forefoot soft tissue swelling. THIS IS AN ELECTRONICALLY VERIFIED FINAL REPORT 02/04/2025 2:03 PM - Electronically signed by Chetan Brandon M.D. T: Report ID: [id number] Reading Location: [place] [address] us Saji Leigh DO IMG XR PROCEDURES Final Result * Diagnostic Mammogram Left [facility] [place] (01/31/2025 9:22 AM CDT) Anatomical Region Laterality Modality Breast Left Mammography 01/31/2025 9:39 AM CDT Impressions 01/31/2025 9:39 AM CDT Left breast 3 mm group of coarse calcifications at 11:00, middle depth, is probably benign. Short-term follow-up with left diagnostic mammogram in 6 months is recommended. The method of initial detection of finding was 3D screening mammography (Sdbt). OVERALL FINAL ASSESSMENT: BI-RADS Category 3: Probably Benign. Electronically signed by: Femi Rothman M.D. Narrative 01/31/2025 9:39 AM CDT EXAMINATION: LEFT UNILATERAL DIGITAL DIAGNOSTIC MAMMOGRAM AND DIGITAL BREAST TOMOSYNTHESIS HISTORY: 64-year-old female recalled from screening mammogram for left breast calcifications. COMPARISON: Mammography dated 01/25/2025 and 04/19/2018 TECHNIQUE: Full field digital mammographic views of the LEFT breast were performed, including computer aided detection (CAD) and digital breast tomosynthesis (DBT). In addition, 2-D spot magnification digital mammographic views of the left breast were performed. BREAST PARENCHYMAL COMPOSITION: The breasts are almost entirely fatty. MAMMOGRAM FINDINGS: A 3 mm group of coarse calcifications is confirmed in the left breast at approximately the 11 o'clock position, middle depth. No definite associated mass or architectural distortion is identified. These calcifications are new since April 2018; however, their morphology suggests a probably benign etiology. There is no definite suspicious finding in the left breast on mammogram. us [facility] IMG MAMMO PROCEDURES Final Resu lt * (ABNORMAL) Screening Mammogram Bilateral [facility] [place] (01/25/2025 10:32 AM CDT) Anatomical Region Laterality Modality Breast Bilateral Mammography Impressions 01/26/2025 2:05 PM CDT Left 1) Calcifications: Left breast calcifications in the middle depth. Diagnostic mammogram with possible ultrasound is recommended. Right No evidence of malignancy. OVERALL BI-RADS FINAL ASSESSMENT: 0 - Incomplete: Needs Additional Imaging Evaluation RECOMMENDATION: Recommend left breast diagnostic mammogram with possible ultrasound. Narrative 01/26/2025 2:05 PM CDT EXAMINATION: Screening Mammogram Bilateral W [place]: 01/25/2025 COMPARISON: TECHNIQUE: Mammography was performed with 2D and digital breast tomosynthesis (DBT) images. CAD was utilized. BREAST PARENCHYMAL COMPOSITION: The breasts are almost entirely fatty. FINDINGS: Left 1) Calcifications: There are calcifications seen in the left breast in the middle depth. This finding needs additional imaging evaluation. Right There is no suspicious mass, calcification, or architectural distortion. us M[facility] MAMMO PROCEDURES Final Resu lt * TRANSTHORACIC ECHO (TTE) COMPLETE W DOPPLER/CF WO CONTRAST (01/25/2025 10:07 AM CDT) EF Mod BP 57 % CONS SCIMAGE Anatomical Region Laterality Modality Ultrasound 01/25/2025 9:10 AM CDT Narrative 01/25/2025 6:08 PM CDT Transthoracic Echocardiographic Report Patient Name: SHABBIR JOHNSTON Y : 1960 (64y 1m) Gender: F Study Date: 01/25/2025 09:10:49 AM Ht(Inch): 65 Wt(Lb): 287.99 BSA: 2.45 Drafter Assistant: Radha Bowers JOAQUÍN Order Provider: MARELY SAMAYOA Heart Rate: 72 BMI: 47.92 BP: 126 / 70 Ref Provider: MARELY SAMAYOA PROCEDURES: Echocardiographic Report: ([id number]) Transthoracic complete echo, 2D, spectral and tissue Doppler, color flow Doppler, M-mode. INDICATIONS: R60.0 Localized edema. FINDINGS: Left Ventricle: The Ejection Fraction (Campbell's) is measured at 57 %. Diastolic Function Left ventricular diastolic parameters are consistent with Grade I diastolic dysfunction (normal LA pressure). Right Ventricle: Normal right ventricular size. Normal right ventricular systolic function. Left Atrium: The left atrium is normal in size. Right Atrium: The right atrium is normal in size. Atrial Septum: No shunt by color Doppler. Mitral Valve: Normal mitral valve leaflet structure. There is mild mitral valve regurgitation. No mitral valve stenosis. Aortic Valve: Trileaflet aortic valve. No aortic regurgitation seen. No aortic valve stenosis. Tricuspid Valve: There is mild tricuspid regurgitation. Estimated pulmonary artery systolic pressure is consistent with mild pulmonary hypertension (35-45mmHg). Pulmonic Valve: The pulmonic valve demonstrates normal leaflet structure. Pericardium: No pericardial effusion noted. Aorta: Normal aortic root. The aortic Sinus is normal in size. IVC: IVC Collapses normally with inspiration. The estimated RA pressure is 3 mmHg. CONCLUSIONS: 1. The Ejection Fraction (Campbell's) is measured at 57 %. Diastolic Function Left ventricular diastolic parameters are consistent with Grade I diastolic dysfunction (normal LA pressure). 2. Normal right ventricular size. Normal right ventricular systolic function. 3. Normal mitral valve leaflet structure. There is mild mitral valve regurgitation. No mitral valve stenosis. 4. There is mild tricuspid regurgitation. Estimated pulmonary artery systolic pressure is consistent with mild pulmonary hypertension (35-45mmHg). 5. IVC Collapses normally with inspiration. The estimated RA pressure is 3 mmHg. MEASUREMENTS: 2D/MM Value Range Doppler Value LVIDd 2D 5.65 cm [ 3.50 - 5.70 ] AV Peak Chuck 1.35 m/s LVIDs 2D 3.68 cm [ 3.10 - 4.60 ] AV Peak PG 7.29 mmHg IVSd 2D 0.84 cm [ 0.60 - 1.20 ] LVOT Peak Chuck 1.09 m/s LVPWd 2D 0.90 cm [ 0.60 - 1.10 ] LVOT Peak PG 4.75 mmHg LV Thickness Ratio 0.93 LVOT Diam 2.00 cm LV Mass 2D 192.09 g NELSON Vmax 2.54 cm2 LV Mass Index 2D 78.40 g/m2 MV E Peak Chuck 0.53 m/s RWT 0.32 MV A Peak Chuck 0.65 m/s EDV Mod BP 86.10 ml [ 46.00 - 106.00 ] MV E/A 0.80 ratio LV EDV Index 35.14 ml/m2 MV Decel Time 180.00 msec ESV Mod BP 37.30 ml [ 14.00 - 42.00 ] Med E` Chuck 0.07 m/s EF Mod BP 57 % [ 54 - 74 ] Lat E` Chuck 0.08 m/s LA Dimension 2D 4.50 cm [ 1.90 - 4.00 ] Average E/E` 706.67 LA Length 2C 6.36 cm TV Peak Chuck 0.44 m/s LA Length 4C 6.27 cm TV Peak PG 0.77 mmHg LA Volume BP 90.00 ml RV S` 10.60 cm/sec LA Volume Index 36.73 ml/m2 [ 16.00 - 34.00 ] TR Peak Chuck 3.35 m/s TAPSE 1.87 cm [ 1.71 - 5.00 ] TR Peak PG 44.9 mmHg AoR Diam 2D 3.30 cm [ 2.00 - 3.70 ] RA Pressure 3.00 mmHg Ao Root Index 1.35 cm/m2 [ 1.00 - 2.00 ] RVSP 47.90 mmHg Asc Ao Diam 2D 3.00 cm PV Peak Chuck 0.80 m/s Asc Ao Index 1.22 cm/m2 PV Peak PG 2.56 mmHg - ATTESTATION: I have reviewed and interpreted the pertinent images and measurements of this study. I attest to the conclusions in the final report that is provided above. DISCLAIMER: The study images and the final report will be retained in the patient chart by the [facility] for the legally required time period. This chart constitutes the legal record of any testing performed. Electronically Signed By: Ventura Chao MD 01/25/2025 6:07:34 PM CDT Procedure Note Ventura Chao MD - 01/25/2025 Transthoracic Echocardiographic Report Patient Name: SHABBIR JOHNSTON Y : 1960 (64y 1m) Gender: F Study Date: 01/25/2025 09:10:49 AM Ht(Inch): 65 Wt(Lb): 287.99 BSA: 2.45 Drafter Assistant: Radha Bowers RDCS Order Provider: MARELY SAMAYOA Heart Rate: 72 BMI: 47.92 BP: 126 / 70 Ref Provider: MARELY SAMAYOA PROCEDURES: Echocardiographic Report: ([id number]) Transthoracic complete echo, 2D,spectral and tissue Doppler, color flow Doppler, M-mode. INDICATIONS: R60.0 Localized edema. FINDINGS: Left Ventricle: The Ejection Fraction (Campbell's) is measured at 57 %.Diastolic Function Left ventricular diastolic parameters are consistent with Grade Idiastolic dysfunction (normal LA pressure). Right Ventricle: Normal right ventricular size. Normal right ventricularsystolic function. Left Atrium: The left atrium is normal in size. Right Atrium: The right atrium is normal in size. Atrial Septum: No shunt by color Doppler. Mitral Valve: Normal mitral valve leaflet structure. There is mild mitralvalve regurgitation. No mitral valve stenosis. Aortic Valve: Trileaflet aortic valve. No aortic regurgitation seen. Noaortic valve stenosis. Tricuspid Valve: There is mild tricuspid regurgitation. Estimatedpulmonary artery systolic pressure is consistent with mild pulmonary hypertension(35-45mmHg). Pulmonic Valve: The pulmonic valve demonstrates normal leafletstructure. Pericardium: No pericardial effusion noted. Aorta: Normal aortic root. The aortic Sinus is normal in size. IVC: IVC Collapses normally with inspiration. The estimated RA pressure is3 mmHg. CONCLUSIONS: 1. The Ejection Fraction (Campbell's) is measured at 57 %. DiastolicFunction Left ventricular diastolic parameters are consistent with Grade I diastolicdysfunction (normal LA pressure). 2. Normal right ventricular size. Normal right ventricular systolicfunction. 3. Normal mitral valve leaflet structure. There is mild mitral valveregurgitation. No mitral valve stenosis. 4. There is mild tricuspid regurgitation. Estimated pulmonary arterysystolic pressure is consistent with mild pulmonary hypertension (35-45mmHg). 5. IVC Collapses normally with inspiration. The estimated RA pressure is 3mmHg. MEASUREMENTS: 2D/MM Value Range DopplerValue LVIDd 2D 5.65 cm [ 3.50 - 5.70 ] AV Peak Vel1.35 m/s LVIDs 2D 3.68 cm [ 3.10 - 4.60 ] AV Peak PG7.29 mmHg IVSd 2D 0.84 cm [ 0.60 - 1.20 ] LVOT Peak Vel1.09 m/s LVPWd 2D 0.90 cm [ 0.60 - 1.10 ] LVOT Peak PG4.75 mmHg LV Thickness Ratio 0.93 LVOT Diam2.00 cm LV Mass 2D 192.09 g NELSON Vmax2.54 cm2 LV Mass Index 2D 78.40 g/m2 MV E Peak Vel0.53 m/s RWT 0.32 MV A Peak Vel0.65 m/s EDV Mod BP 86.10 ml [ 46.00 - 106.00 ] MV E/A0.80 ratio LV EDV Index 35.14 ml/m2 MV Decel Kput565.00 msec ESV Mod BP 37.30 ml [ 14.00 - 42.00 ] Med E` Vel0.07 m/s EF Mod BP 57 % [ 54 - 74 ] Lat E` Vel0.08 m/s LA Dimension 2D 4.50 cm [ 1.90 - 4.00 ] Average E/E`706.67 LA Length 2C 6.36 cm TV Peak Vel0.44 m/s LA Length 4C 6.27 cm TV Peak PG0.77 mmHg LA Volume BP 90.00 ml RV S`10.60 cm/sec LA Volume Index 36.73 ml/m2 [ 16.00 - 34.00 ] TR Peak Vel3.35 m/s TAPSE 1.87 cm [ 1.71 - 5.00 ] TR Peak PG44.9 mmHg AoR Diam 2D 3.30 cm [ 2.00 - 3.70 ] RA Pressure3.00 mmHg Ao Root Index 1.35 cm/m2 [ 1.00 - 2.00 ] RVSP47.90 mmHg Asc Ao Diam 2D 3.00 cm PV Peak Vel0.80 m/s Asc Ao Index 1.22 cm/m2 PV Peak PG2.56 mmHg - ATTESTATION: I have reviewed and interpreted the pertinent images and measurements ofthis study. I attest to the conclusions in the final report that is provided above. DISCLAIMER: The study images and the final report will be retained in the patientchart by the [facility] for the legally required time period. This chart constitutesthe legal record of any testing performed. Electronically Signed By: Ventura Chao MD 01/25/2025 6:07:34 PM CDT us M[facility] CV ECHO PROCEDURES Final Result * XR Calcaneus Right 2 or More Views (01/03/2025 9:29 AM CDT) Anatomical Region Laterality Modality Lower Extremities, Foot Right Computed Radiography 01/05/2025 7:18 AM CDT Narrative 01/05/2025 7:20 AM CDT EXAM DESCRIPTION: 1. XR CALCANEUS RIGHT 2 OR MORE VIEWS; 2. XR CALCANEUS LEFT 2 OR MORE VIEWS REASON FOR STUDY: Bilateral heel pain. Bilateral posterior swelling x 2 wks, NKI FINDINGS: Two views each calcaneus submitted without comparison. Left calcaneus: No acute fracture. Mild Achilles tendinopathy with a small enthesophyte. Large heel spur. Polyarticular left ankle and midfoot osteoarthritis. Lower extremity soft tissue swelling. Right calcaneus: Moderate insertional Achilles tendinosis with heterotopic ossification. Dorsal soft tissue swelling is present. Large heel spur is present. Mild ankle and polyarticular midfoot osteoarthritis. Lower extremity soft tissue swelling. IMPRESSION: 1. Moderate insertional right Achilles tendinosis with heterotopic ossification and dorsal soft tissue swelling. 2. Mild left Achilles tendinopathy with a small enthesophyte. 3. Large bilateral heel spurs. 4. Bilateral lower extremity soft tissue swelling. 5. Bilateral ankle and polyarticular midfoot osteoarthritis. THIS IS AN ELECTRONICALLY VERIFIED FINAL REPORT 01/05/2025 7:20 AM - Electronically signed by Chetan Brandon M.D. T: Report ID: [id number] Reading Location: [id number] Procedure Note Chetan Brandon MD - 01/05/2025 EXAM DESCRIPTION: 1. XR CALCANEUS RIGHT 2 OR MORE VIEWS; 2. XR CALCANEUS LEFT 2 OR MORE VIEWS REASON FOR STUDY: Bilateral heel pain. Bilateral posterior swelling x 2 wks, NKI FINDINGS: Two views each calcaneus submitted without comparison. Left calcaneus: No acute fracture. Mild Achilles tendinopathy with a small enthesophyte. Large heel spur. Polyarticular left ankle and midfoot osteoarthritis.Lower extremity soft tissue swelling. Right calcaneus: Moderate insertional Achilles tendinosis with heterotopic ossification. Dorsal soft tissue swelling is present. Large heel spur is present. Mild ankle and polyarticular midfoot osteoarthritis. Lower extremity softtissue swelling. IMPRESSION: 1. Moderate insertional right Achilles tendinosis with heterotopic ossification and dorsal soft tissue swelling. 2. Mild left Achilles tendinopathy with a small enthesophyte. 3. Large bilateral heel spurs. 4. Bilateral lower extremity soft tissue swelling. 5. Bilateral ankle and polyarticular midfoot osteoarthritis. THIS IS AN ELECTRONICALLY VERIFIED FINAL REPORT 01/05/2025 7:20 AM - Electronically signed by Chetan GLASER T: Report ID: [id number] Reading Location: [place] [address] us Marely [facility] IMG XR PROCEDURES Final Result * XR Calcaneus Left 2 or More Views (01/03/2025 9:29 AM CDT) Anatomical Region Laterality Modality Lower Extremities, Foot Left Computed Radiography 01/05/2025 7:18 AM CDT Narrative 01/05/2025 7:20 AM CDT EXAM DESCRIPTION: 1. XR CALCANEUS RIGHT 2 OR MORE VIEWS; 2. XR CALCANEUS LEFT 2 OR MORE VIEWS REASON FOR STUDY: Bilateral heel pain. Bilateral posterior swelling x 2 wks, NKI FINDINGS: Two views each calcaneus submitted without comparison. Left calcaneus: No acute fracture. Mild Achilles tendinopathy with a small enthesophyte. Large heel spur. Polyarticular left ankle and midfoot osteoarthritis. Lower extremity soft tissue swelling. Right calcaneus: Moderate insertional Achilles tendinosis with heterotopic ossification. Dorsal soft tissue swelling is present. Large heel spur is present. Mild ankle and polyarticular midfoot osteoarthritis. Lower extremity soft tissue swelling. IMPRESSION: 1. Moderate insertional right Achilles tendinosis with heterotopic ossification and dorsal soft tissue swelling. 2. Mild left Achilles tendinopathy with a small enthesophyte. 3. Large bilateral heel spurs. 4. Bilateral lower extremity soft tissue swelling. 5. Bilateral ankle and polyarticular midfoot osteoarthritis. THIS IS AN ELECTRONICALLY VERIFIED FINAL REPORT 01/05/2025 7:20 AM - Electronically signed by Chetan GLASER T: Report ID: [id number] Reading Location: [id number] Procedure Note Chetan Brandon MD - 01/05/2025 EXAM DESCRIPTION: 1. XR CALCANEUS RIGHT 2 OR MORE VIEWS; 2. XR CALCANEUS LEFT 2 OR MORE VIEWS REASON FOR STUDY: Bilateral heel pain. Bilateral posterior swelling x 2 wks, NKI FINDINGS: Two views each calcaneus submitted without comparison. Left calcaneus: No acute fracture. Mild Achilles tendinopathy with a small enthesophyte. Large heel spur. Polyarticular left ankle and midfoot osteoarthritis.Lower extremity soft tissue swelling. Right calcaneus: Moderate insertional Achilles tendinosis with heterotopic ossification. Dorsal soft tissue swelling is present. Large heel spur is present. Mild ankle and polyarticular midfoot osteoarthritis. Lower extremity softtissue swelling. IMPRESSION: 1. Moderate insertional right Achilles tendinosis with heterotopic ossification and dorsal soft tissue swelling. 2. Mild left Achilles tendinopathy with a small enthesophyte. 3. Large bilateral heel spurs. 4. Bilateral lower extremity soft tissue swelling. 5. Bilateral ankle and polyarticular midfoot osteoarthritis. THIS IS AN ELECTRONICALLY VERIFIED FINAL REPORT 01/05/2025 7:20 AM - Electronically signed by Chetan Brandon M.D. T: Report ID: [id number] Reading Location: [id number] IMG XR PROCEDURES Final Result * eGFR (01/03/2025 9:15 AM CDT) eGFR >90 >=60 mL/min/1. 73 m2 Comment: Interpretive Data Reference Interval Normal >/= 90 mL/min/1.73m2 Mildly decreased* 60 - 89 mL/min/1.73m2 Mildly to moderately decreased 45 - 59 mL/min/1.73m2 Moderately to severely decreased 30 - 44 mL/min/1.73m2 Severely decreased 15 - 29 mL/min/1.73m2 Kidney Failure < 15 mL/min/1.73m2 *Relative to young adult level Estimated glomerular filtration rate is determined by the 2020 CKD-EPI equation recommended by the [employer] (A Unifying Approach to GFR Estimation: Recommendations of the NKF-ASK Task Force on Reassessing the Inclusion of Race in Diagnosing Kidney Disease, JASN 2020). The CKD-EPI equation should not be used for patients with unstable renal function and has not been validated in children and those over 70. Current interpretive data was last reviewed 2021. Blood 01/03/2025 9:15 AM CDT 01/03/2025 12:19 PM CDT us [facility] LAB BLOOD ORDERABLES Final Resu lt [facility] [id number] [facility] [place] [address] * Differential, auto (01/03/2025 9:15 AM CDT) Neutrophil abs 3.96 1.50 - 6.50 K/cumm Imm gran abs 0.03 0.00 - 0.10 K/cumm [facility] Lymphocyte abs 1.43 0.80 - 3.30 K/cumm [facility] Monocyte abs 0.63 0.20 - 0.80 K/cumm [facility] Eosinophil abs 0.12 0.00 - 0.50 K/cumm [facility] Basophil abs 0.04 0.00 - 0.10 K/cumm [facility] Neutrophil pct 63.9 % [facility] Comment: Interpretive Data Percent cell count reference ranges are not reported, since discordance with absolute values may lead to misinterpretation of CBC data. Current Interpretive Data was last revised on 2017. Imm gran pct 0.5 % [facility] Comment: Interpretive Data Percent cell count reference ranges are not reported, since discordance with absolute values may lead to misinterpretation of CBC data. Current Interpretive Data was last revised on 2017. Lymphocyte pct 23.0 % [facility] Comment: Interpretive Data Percent cell count reference ranges are not reported, since discordance with absolute values may lead to misinterpretation of CBC data. Current Interpretive Data was last revised on 2017. Monocyte pct 10.1 % [facility] Comment: Interpretive Data Percent cell count reference ranges are not reported, since discordance with absolute values may lead to misinterpretation of CBC data. Current Interpretive Data was last revised on 2017. Eosinophil pct 1.9 % [facility] Comment: Interpretive Data Percent cell count reference ranges are not reported, since discordance with absolute values may lead to misinterpretation of CBC data. Current Interpretive Data was last revised on 2017. Basophil pct 0.6 % [facility] Comment: Interpretive Data Percent cell count reference ranges are not reported, since discordance with absolute values may lead to misinterpretation of CBC data. Current Interpretive Data was last revised on 2017. Blood 01/03/2025 9:15 AM CDT 01/03/2025 12:19 PM CDT us Marely BANEGAS LAB BLOOD ORDERABLES Final [facility]u lt [facility] [address] [facility] [place] [address] * Pro B-type natriuretic peptide (01/03/2025 9:15 AM CDT) NT-proBNP 75 <=300 pg/mL Comment: Interpretive Comments: A. Dyspnea in Acute Care Setting All Ages: < 300 pg/ml, acute heart failure unlikely. < 50 yrs: 300 - 450 pg/ml, further investigation warranted. > 450 pg/ml, acute heart failure likely. 50 - 74 yrs: 300 - 900 pg/ml, further investigation warranted. > 900 pg/ml, acute heart failure likely . > or = 75 yrs: 450 - 1800 pg/ml, further investigation warranted. > 1800 pg/ml, acute heart failure likely. B. Non-acute Setting < 75 yrs < 125 pg/ml, rules out heart failure. > or = 125 pg/ml, further investigation warranted. > or = 75 yrs < 450 pg/ml, rules out heart failure. > or = 450 pg/ml, further investigation warranted. - Knowledge of each individual patient's NT-proBNP range may be more useful than using similar cut-points for every patient. Please note that marked elevations in NT-proBNP levels may be observed in state other than Left Ventricular Congestive Failure, including: acute coronary syndromes, right heart strain/failure (including pulmonary embolism and cor pulmonale), critical illness, renal failure, as well as advanced age. - References: 1. Glen DOWD et.al. Eur Heart J. 2006:27:330-337. 2. Edita DURHAM, Michael HEREDIA. J. AM Kendell Cardiol: Cardiovasc Imag. 2009;2: 216- 225. Interpretive Data Last Revised Date: 2018. Blood 01/03/2025 9:15 AM CDT 01/03/2025 12:19 PM CDT us Marely BANEGAS LAB BLOOD ORDERABLES Final Resu lt Performing Organization Address [facility] Co de Phone Number [address] [place] [address] * (ABNORMAL) Iron profile w/ IBC (01/03/2025 9:15 AM CDT) Pathologist [facility] Iron 33(L) 35 - 145 mcg/dL TIBC 317 250 - 400 mcg/dL [facility] Transferrin saturation 10(L) 20 - 50 % [facility] Blood 01/03/2025 9:15 AM CDT 01/03/2025 12:19 PM CDT Marely BANEGAS LAB BLOOD ORDERABLES Final Resu lt Performing Organization Address [facility] Co de Phone Number [address] [place] [address] * (ABNORMAL) CBC with auto differential (01/03/2025 9:15 AM CDT) WBC 6.21 3.80 - 9.90 K/cumm Hgb 10.9(L) 11.9 - 15.5 g/dL [facility] Hct 37.2 35.6 - 45.5 % [facility] Plt 299 150 - 400 K/cumm [facility] MPV 10.1 9.1 - 12.3 fL [facility] RBC 4.53 3.90 - 5.20 M/cumm [facility] MCV 82.1 81.3 - 96.4 fL [facility] MCH 24.1(L) 27.1 - 33.3 pg [facility] MCHC 29.3(L) 32.3 - 35.7 g/dL [facility] RDW CV 16.8(H) 11.1 - 14.9 % [facility] RDW SD 49.8(H) 35.7 - 48.1 fL [facility] NRBC abs 0.00 0.00 - 0.01 K/cumm [facility] Blood 01/03/2025 9:15 AM CDT 01/03/2025 12:19 PM CDT us Marely BANEGAS LAB BLOOD ORDERABLES Final Resu lt Performing Organization Address [facility] Co de Phone Number [address] [place] [address] * T3, free (01/03/2025 9:15 AM CDT) Free T3 2.9 2.0 - 4.4 pg/mL Blood 01/03/2025 9:15 AM CDT 01/03/2025 12:19 PM CDT us Marely BANEGAS LAB BLOOD ORDERABLES Final Resu lt Performing Organization Address [facility] Co de Phone Number [address] [place] [address] * TSH (01/03/2025 9:15 AM CDT) Thyroid Stimulating Hormone 2.14 0.30 - 4.20 mcIUnit/mL Blood 01/03/2025 9:15 AM CDT 01/03/2025 12:19 PM CDT us Marely BANEGAS LAB BLOOD ORDERABLES Final Resu lt Performing Organization Address [facility] Co de Phone Number [address] [place] [address] * T4, free (01/03/2025 9:15 AM CDT) Free T4 0.99 0.90 - 1.70 ng/dL Blood 01/03/2025 9:15 AM CDT 01/03/2025 12:19 PM CDT Marely BANEGAS LAB BLOOD ORDERABLES Final Resu lt Performing Organization Address [facility] Co de Phone Number [address] [address] * Ferritin (01/03/2025 9:15 AM CDT) Pathologist [facility] Ferritin 67 13 - 150 ng/mL Blood 01/03/2025 9:15 AM CDT 01/03/2025 12:19 PM CDT Marely BANEGAS LAB BLOOD ORDERABLES Final Resu lt Performing Organization Address [facility] de Phone Number [address] [address] * Lipid panel (01/03/2025 9:15 AM CDT) [facility] Cholesterol 183 30 - 199 mg/dL Comment: Interpretive Data Ages < or = 19 years Acceptable: <170 mg/dL Borderline high: 170-199 mg/dL High: >or= 200 mg/dL Ages > or = 20 years Desirable: <200 mg/dL Borderline high: 200-239 mg/dL High: >or= 240 mg/dL Literature References: 1. Expert Panel on Integrated Guidelines for Cardiovascular Health and Risk Reduction in Children and Adolescents. Pediatrics 2011;128:S213 2. NCEP Expert Panel. Circulation 2004;110:227 Current Interpretive Data was last revised on 2018. Triglycerides 32 <=149 mg/dL [facility] Comment: Interpretive Data Ages < or = 9 years Acceptable: <75 mg/dL Borderline high: 75-99 mg/dL High: >or= 100 mg/dL Ages 10 to 20 years Acceptable: <90 mg/dL Borderline high: 90-129 mg/dL High: >or= 130 mg/dL Ages > or = 20 years Desirable: <150 mg/dL Borderline high: 150-199 mg/dL High: 200-499 mg/dL Very high: >or= 499 mg/dL Literature References: 1. Expert Panel on Integrated Guidelines for Cardiovascular Health and Risk Reduction in Children and Adolescents. Pediatrics 2011;128:S213 2. NCEP Expert Panel. Circulation 2004;110:227 Current Interpretive Data was last revised on 2018. HDL 56 >=40 mg/dL [facility] Comment: Interpretive Data Ages < or = 19 years Acceptable: >45 mg/dL Borderline low: 40-45 mg/dL Low: <40 mg/dL Ages > or = 20 years Desirable: >or= 60 mg/dL Low: <40 mg/dL Literature References: 1. Expert Panel on Integrated Guidelines for Cardiovascular Health and Risk Reduction in Children and Adolescents. Pediatrics 2011;128:S213 2. NCEP Expert Panel. Circulation 2004;110:227 Current Interpretive Data was last revised on 2018. LDL, calculated 120 <=129 mg/dL [facility] Comment: Interpretive Data Ages < or = 19 years Acceptable: <110 mg/dL Borderline high: 110-129 mg/dL High: >or= 130 mg/dL Ages > or = 20 years Optimal: <100 mg/dL Near optimal: 100-129 mg/dL Borderline high: 130-159 mg/dL High: >160 mg/dL Calculated using the Oliver LDL-C estimating equation. This equation was implemented on 2024. Prior to this date LDL-C was estimated using the Friedewald equation. Literature References: 1. Expert Panel on Integrated Guidelines for Cardiovascular Health and Risk Reduction in Children and Adolescents. Pediatrics 2011;128:S213 2. NCEP Expert Panel. Circulation 2004;110:227 3. Oliver Stephen al. BIENVENIDO Cardiol. 2020 November 03;5(5):540-548. doi: 10.1001/jamacardio.2020.0013 Current Interpretive Data was last revised on 2024. Non-HDL Cholesterol 127 mg/dL [facility] Comment: Interpretive Data Ages < or = 19 years Acceptable: <120 mg/dL Borderline high: 120-144 mg/dL High: >145 mg/dL Ages > or = 20 years When triglycerides are >200 mg/dL, Non-HDL cholesterol is a secondary target of therapy with treatment goals that are 30 mg/dL greater than the LDL cholesterol target. Literature References: 1. Expert Panel on Integrated Guidelines for Cardiovascular Health and Risk Reduction in Children and Adolescents. Pediatrics 2011;128:S213 2. NCEP Expert Panel. Circulation 2004;110:227 Current Interpretive Data was last revised on 2018. Chol/HDL ratio 3 [facility] Blood 01/03/2025 9:15 AM CDT 01/03/2025 12:19 PM CDT us Marely BANEGAS LAB BLOOD ORDERABLES Final Resu lt [facility] [address] [facility] Department [place] [address] * (ABNORMAL) Comprehensive metabolic panel (01/03/2025 9:15 AM CDT) Sodium 144 135 - 145 mmol/L Potassium, pl 3.6 3.3 - 4.9 mmol/L [facility] Chloride 107 97 - 110 mmol/L [facility] CO2 24 22 - 32 mmol/L [facility] Anion gap 13 2 - 15 mmol/L [facility] BUN 14 6 - 25 mg/dL [facility] Creatinine 0.66 0.60 - 1.10 mg/dL [facility] Glucose 102 70 - 199 mg/dL [facility] Comment: Interpretive Data Fasting glucose >/= 126 mg/dl is diagnostic for diabetes. Fasting is defined as no caloric intake for at least 8 hours. Fasting glucose between 100 mg/dl to 125 mg/dl is diagnostic of prediabetes. In a patient with classic symptoms of hyperglycemia or hyperglycemic crisis, a random glucose >/= 200 mg/dl is diagnostic for diabetes. In the absence of unequivocal hyperglycemia, results should be confirmed by repeat testing. The classification and Diagnosis of Diabetes Diabetes Care 202; 46: S19-S40. Current interpretive data was last revised 2022. Calcium 9.5 8.5 - 10.3 mg/dL [facility] Bilirubin, total 0.2 0.1 - 1.2 mg/dL [facility] Protein, pl 7.4 6.5 - 8.5 g/dL [facility] Albumin 3.9 3.5 - 5.0 g/dL [facility] Alk phos 112 40 - 130 Units/L [facility] ALT <5(L) 7 - 45 Units/L [facility] AST 17 10 - 45 Units/L [facility] Blood 01/03/2025 9:15 AM CDT 01/03/2025 12:19 PM CDT Marely BANEGAS LAB BLOOD ORDERABLES Final Resu lt [facility] [address] [facility] Department [place] [address] * Colonoscopy (06/03/2022) Anatomical Region Laterality Modality Other Historical Provider ENDOSCOPY PROCEDURES Claribel l Result * PAP SMEAR WITH HPV (11/19/2015) Pap smear Normal Historical Provider HEALTH MAINTENANCE Final Result from Last 3 Months or Most Recently Relevant to Health Maintenance Insurance [facility] CHO[facility] PLUS [facility] CHOICE PLUS [facility] CHOICE PLUS WORKERS COMPENSATION [place] [address] CHOICE PLUS WORKERS COMPENSATION GENERIC [address] [place] [address] Advance Directives For more information, please contact: [phone] * Full Code (Latest Code Status on File) Date Activated Date Inactivated Comments 06/09/2022 1:07 PM 06/10/2022 6:08 PM * Full Code Date Activated Date Inactivated Comments 06/09/2022 1:07 PM 06/09/2022 1:07 PM * Full Code Date Activated Date Inactivated Comments 06/06/2022 8:49 PM 06/09/2022 1:07 PM Care Teams Rn Baby Relationship Specialty Start Date End Date Marely Samayoa PA PCP - General Family Medicine 04/03/22
--- OUTSIDE RECORDS SUMMARY | 2025-03-14 17:18 | XMS_ITS | Clinical Summary ---
Author Organization [facility] Address [address] [place] [address] Care Team Providers Care Inbound Customer Service Representative Name Role Phone Delmer Farnsworth MD Primary Care Provider [phone] Allergies No known active allergies Medications ibuprofen 800 MG tablet Take 800 mg by mouth 3 (three) times daily as needed for Pain. Active furosemide 20 MG tablet Take 20 mg by mouth daily. Active potassium chloride CR 10 MEQ CR capsule Take 10 mEq by mouth daily. Active saccharomyces boulardii 250 MG capsule Take 250 mg by mouth 2 (two) times daily. Active hydrocodone-curt taminophen (NORCO) 5-325 MG tablet Take 1-2 tablets by mouth every 4 (four) hours as needed for Pain. 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 Gender Identity Not on file Sexual Orientation Not on file Last Filed Vital Signs Vital Sign Reading Time Taken Comments Blood Pressure 115/56 08/07/2018 2:54 PM FILE DRAWER FINISHER Pulse 101 08/07/2018 2:54 PM FILE DRAWER FINISHER Temperature 36.6 C (97.8 F) 08/07/2018 2:54 PM FILE DRAWER FINISHER Respiratory Rate 20 08/07/2018 2:54 PM FILE DRAWER FINISHER Oxygen Saturation 92% 08/07/2018 2:54 PM FILE DRAWER FINISHER Inhaled Oxygen Concentration - - Weight 122.5 kg (270 lb) 07/27/2018 1:34 PM FILE DRAWER FINISHER Height 165.1 cm (5' 5) 07/27/2018 1:34 PM FILE DRAWER FINISHER Body Mass Index 44.93 07/27/2018 1:34 PM FILE DRAWER FINISHER Plan of Treatment Health Maintenance Due Date Last Done Comments Colorectal Cancer Screening Colonoscopy (10 Years) 1961 Annual Physical 1964 Hepatitis C 12/08/1979 Mammogram Screening 2001 Zoster Vaccines (1 of 2) 12/08/2011 Pneumococcal Vaccine: 50+ Ye ars (2 of 2 - PCV) 04/18/2014 04/18/2013 DTaP, Tdap and Td Vaccines ( 2 - Td or Tdap) 04/18/2023 04/18/2013 COVID-19 Vaccine (1 - 2023-2 5 season) 2025 RSV Immunization or 60+ Years (1 - 1-dose 75+ series) 2036 Meningococcal B Vaccine Aged Out No l onger eligible based on patient's age to complete this topic Meningococcal Vaccine Aged Out No bobby lizzette eligible based on patient's age to complete this topic RSV Immunizations Under 20 Months Aged Out No longer eligible based on patient's age to complete this topic Medical Devices Implanted Type Area Bench Mover Device Identifier Shelf Expiration Date Model / Serial / Lot Phasic Mesh Implanted:Qty: 1 on 08/05/2018 by Matt Perkins MD at [facility] [employer] Mesh N/A: Abdomen [employer] 01/31/2020 [id number] / / [id number] Insurance [facility] Advance Directives * Full Code (Latest Code Status on File) Date Activated Date Inactivated Comments 08/05/2018 5:13 PM 08/07/2018 6:17 PM Care Teams Inbound Customer Service Representative Relationship Specialty Start Date End Date Delmer Farnsworth MD PCP - General FAMILY PRACTICE 07/27/18
--- OUTSIDE RECORDS SUMMARY | 2025-03-14 17:18 | XMS_ITS | Clinical Summary ---
Author Organization [facility] Address [address] [place] [address] Care Team Providers Care Squad Boss Name Role Phone Stanislav Andino DO Primary Care Provider Hillary Grant RN Unavailable [phone] Segundo Lombardi MD Unavailable [phone] Source Comments [facility],non-owned Affiliates and Associated Physician Practices is amultiple site organization consisting of ambulatory clinics and hospital sitesin [place], [place], [place] and [place]. This disclosure is being madepursuant to the Care Everywhere program and may not contain all information available regarding this patient. Last updated 18.[facility] Allergies No known active allergies Medications * Be aware that medications may not be up to date on this document. Alwaysverify current medications with the patient. vitamin D, ergocalciferol, (DRISDOL) 23215 UNITS capsule Take 50,000 Units by mouth every 7 days 0 6 Active MULTIPLE VITAMIN PO Active oxyCODONE-aceta minophen (PERCOCET) 5-325 MG tablet Take by mouth every 4 hours as needed for Pain 60 Tab 0 6 Active Additional Information Patient not taking.Reported on 03/21/2016 docusate sodium (COLACE) 100 MG capsule Take one po daily 30 Cap 1 6 Active Additional Information Patient not taking.Reported on 02/01/2016 Naproxen Sodium (ALEVE PO) Take by mouth as needed Active FLUVIRIN injection ADM 0.5ML IM UTD 0 6 Active Active Problems Problem Noted Date Diagnosed Date Perforation of sigmoid colon due to diverticulit is 2015 Diverticulitis of colon 12/04/2015 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 Ventral hernia with obstruction and without gang moises 12/04/2015 Family History Medical History Relation Name Comments Diabetes Brother 2 Hypertension Mother Cancer - Breast Sister 2 Relation Name Status Comments Brother 1 Alive Brother 2 Father Unknown Mother Sister 1 Alive Sister 2 Social History Tobacco Use Types Packs/Day Years Used Date Smoking Tobacco: Former Cigarettes Q uit: 07/06/2005 Smokeless Tobacco: Never Tobacco Cessation:Ready to Q uit: No; Counseling Given: Yes Alcohol Use Standard Drinks/Week Comments Yes 0 (1 standard drink = 0.6 oz pur e alcohol) wine occ Comments No Sex and Gender Information Value Date Recorded Sex Assigned at Not on file 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 Gender Identity Not on file Sexual Orientation Not on file Last Filed Vital Signs Vital Sign Reading Time Taken Comments Blood Pressure 123/83 12/09/2015 11:11 AM CDT Pulse 63 12/09/2015 11:11 AM CDT Temperature 36.8 C (98.2 F) 12/09/2015 11:11 AM CDT Respiratory Rate 18 12/09/2015 11:11 AM CDT Oxygen Saturation 97% 12/09/2015 11:11 AM CDT Inhaled Oxygen Concentration - - Weight 114.3 kg (252 lb) 03/21/2016 9:02 AM CDT Height 165.1 cm (5' 5) 03/21/2016 9:02 AM CDT Body Mass Index 41.93 03/21/2016 9:02 AM CDT Plan of Treatment Health Maintenance Due Date Last Done Comments COLOGUARD (AGES 45-75) - COL ON CA SCREENING 1961 COLON MONITORING 1961 COLONOSCOPY - COLON CA SCREENING 1961 CT COLONOGRAPHY - COLON CA SCREENING 1961 Colorectal Cancer Screening 1961 FIT - COLON CA SCREENING 1961 FLEX SIG - COLON CA SCREENING 1961 LIPID TESTING 1961 MAMMOGRAM 1961 HIV SCREENING 1976 HEPATITIS C SCREENING 12/03/1979 DTAP/TDAP/TD VACCINES (1 - Tdap) 1980 PNEUMOCOCCAL VACCINE 50+ (1 of 1 - PCV) 12/08/2011 ZOSTER VACCINE (1 of 2) 12/08/2011 DEPRESSION SCREENING 07/06/2024 COVID-19 VACCINE (1 - 2023-2 5 season) 2025 INFLUENZA VACCINE (#1) 2025 Respiratory Syncytial Virus (RSV) Vaccine Pt: or over 60 yrs (1 - 1-dose 75+ series) 2036 HEPATITIS B VACCINE Aged Out No longe r eligible based on patient's age to complete this topic HIB VACCINE Aged Out No longer eligi ble based on patient's age to complete this topic HPV VACCINE Aged Out No longer eligi ble based on patient's age to complete this topic MENINGOCOCCAL (Group B) VACC INE SHARED DECISION-MAKING Aged Out No longer eligibl e based on patient's age to complete this topic MENINGOCOCCAL GROUPS A/C/Y/W VACCINE Aged Out No longer eligible b ased on patient's age to complete this topic Insurance Advance Directives * Full Code (Latest Code Status on File) Date Activated Date Inactivated Comments 12/04/2015 2:25 PM 12/09/2015 2:25 PM Care Teams Squad Boss Relationship Specialty Start Date End Date Stanislav Andino DO PCP - General Internal Medicine 09/07/15 Hillary Grant, MARCELINA Tool And Fixture Repairer 12/07/15 Segundo Lombardi MD [address] [place] [address] Gastroenterology 12/19/15
--- OUTSIDE RECORDS SUMMARY | 2025-03-14 17:18 | XMS_ITS | Encounter Summary ---
Author Organization [facility] Address [address] [place] [address] Care Team Providers Care Pediatric Cns Name Role Phone Stanislav Andino DO Primary Care Provider [phone] Hillary Grant RN Unavailable Segundo Lombardi MD Unavailable Encounter Details Date Type Department Care Team (Late st Contact Info) Description 09/07/2015 [facility] Outpatient Visit [facility] [address] [place] [address] Abdifatah Fishman MD [address] [facility] [address] [place] [address] Social History Tobacco Use Types Packs/Day Years Used Date Smoking Tobacco: Former Smokeless Tobacco: Never Comments:quit 10 years ago Alcohol Use Standard Drinks/Week Comments Yes 0 (1 standard drink = 0.6 oz pur e alcohol) occ Comments No Sex and Gender Information Value Date Recorded Sex Assigned at Not on file 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
== END 2025-03-14 16:19 | disposition home or self-care (01) ==
PROVIDERS: PCP Internal Medicine; Visit Provider Physician Assistant Surgical
DX: S82.124A Nondisplaced fracture of lateral condyle of right tibia, initial encounter for closed fracture (principal); X58.XXXA Exposure to other specified factors, initial encounter; M17.11 Unilateral primary osteoarthritis, right knee
CPT/HCPCS: 73700